=== PATIENT | male | born 1955 ===

== ENCOUNTER → 2023-03-30 | Outpatient (CLI) | payer MEDICARE, BC | LOC: PLD 07:28 → LAB SHORT 07:28 | DX: C44.42 Squamous cell carcinoma of skin of scalp and neck (principal) | CPT/HCPCS: 88305 ==

== ENCOUNTER → 2023-09-07 | Outpatient (CLI) | payer MEDICARE, BC | END | disposition home or self-care (01) | LOC: LAB SHORT 12:56 → LAB 12:56 | DX: C44.319 Basal cell carcinoma of skin of other parts of face (principal) | CPT/HCPCS: 88305 ==